=== PATIENT | female | born 1990 | race Caucasian/White ===

== ENCOUNTER → 2016-06-01 | Outpatient (CLI) | payer MEDICAID ==
[~2016-06-01] MED LIST: AMOXICILLIN 50500 MG PO; CEPHALEXIN500 M1 PO; CIPRO 500MG TA500 MG PO; FIORICET 325 MG1 TA1 PO; NIGHT-TIME COL300 ML; NORCO 325 MG-51 TAB PO; NORCO 325 MG-7.1 TAB PO; PERCOCET 325 MG1 TA2 PO; PHENERGAN 25 TA25 MG PO; PREDNISONE20 MG PO; PRENATAL1 TA1 PO; PRILOSEC 20MG20 MG PO; PROTONIX20 MG PO; PROZAC 20MG20 MG PO; ROBITUSSIN DM 110 ML PO; SINGULAIR 110 MG/TAB PO; SUDAFED 12HR120 MG PO; TRAMADOL; VALIUM 5MG T5 MG/TAB PO; VENTOLIN0.09 MG IH; VIIBRYD10 MG PO; VISTARIL 2525 MG/CAP PO; ZITHROMAX 250M250 MG PO; ZITHROMAX Z PA250 MG PO; ZOFRAN 4MG T4 MG/TAB PO; ZOFRAN ODT4 MG PO
== END ==
LOC: COL.PUL 12:54
DX: R05 Cough (principal)

== ENCOUNTER 2016-06-20 09:15 | Emergency (ER) | payer MEDICAID ==
[~2016-06-20] VITALS: Ht 165.1 cm; Wt 101.8 kg
[~2016-06-20 09:15] MED LIST changes: -PRILOSEC 20MG20 MG PO; -PROTONIX20 MG PO; -PROZAC 20MG20 MG PO; -SINGULAIR 110 MG/TAB PO
[2016-06-20 09:28] VITALS: TEMP 97.9
[2016-06-20 10:27] LABS: BASO % 0.2 % (0.0-2.0); EOS # 0.1 (0.0-0.7); EOS % 0.9 % (0-4.0); GRAN # 7.9 (1.4-6.5); GRAN % 80.8 % (42.2-75.2); HEMATOCRIT 37.3 % (37.0-47.0); HEMOGLOBIN 12.5 g/dl (12.5-16.0); LYMPH # 1.3 (1.2-3.4); LYMPH % 13.4 % (20.0-51.0); MEAN CELL VOLUME 95 fl (80.0-100.0); MEAN CORPUSCULAR HEMOGLOBIN 32 pg (27.0-31.0); MEAN CORPUSCULAR HGB CONC 34 g/dl (33.0-37.0); MEAN PLATELET VOLUME 12.1 fl (7.4-10.4); MONO # 0.4 (0.1-0.6); MONO % 4.1 % (1.7-9.3); PLATELET COUNT 177 K/mm3 (130-400); RED BLOOD COUNT 3.94 M/mm3 (4.10-5.30); REDCELL DISTRIBUTION WIDTH-CV 13.1 % (11.5-14.5); WHITE BLOOD COUNT 9.8 K/mm3 (4.8-10.8)
[2016-06-20 10:36] LABS: PH 6 (5-8); URINE APPEARANCE Hazy; URINE BACTERIA Rare /hpf; URINE BILIRUBIN Negative (NEGATIVE); URINE BLOOD Negative (NEGATIVE); URINE COLOR Yellow; URINE GLUCOSE Negative (NEGATIVE); URINE KETONE Negative (NEGATIVE); URINE RBC 0-2 /hpf; URINE UROBILINOGEN Negative (NEGATIVE)
[2016-06-20 10:42] LABS: ADJUSTED CALCIUM 9.3 mg/dL (8.4-10.2); ALBUMIN 3.7 gm/dL (3.5-5.0); BILIRUBIN,TOTAL 1.1 mg/dL (0.0-1.0); CALCIUM 9.1 mg/dL (8.4-10.2); CREATININE, serum 0.47 mg/dL (0.52-1.25); POTASSIUM 4.2 mmol/L (3.4-5.0); TOTAL PROTEIN 6.9 gm/dL (6.4-8.2)
[2016-06-20 14:04] VITALS: BP 118/77; PULSE 87
== END 2016-06-20 14:06 | disposition home or self-care (01) ==
LOC: COL.ER 09:15
PROVIDERS: Physician Assistant
DX: O21.9 Vomiting of pregnancy, unspecified (principal); Z3A.15 15 weeks gestation of pregnancy; O43.892 Other placental disorders, second trimester; O99.89 Other specified diseases and conditions complicating pregnancy, childbirth and the puerperium; R82.90 Unspecified abnormal findings in urine
CPT/HCPCS: J2550; J7030

== ENCOUNTER 2016-07-06 19:00 | Outpatient (CLI) | payer MEDICAID ==
[~2016-07-06] VITALS: Ht 165.1 cm; Wt 100.0 kg
[2016-07-06 18:45] VITALS: BP 135/74; PULSE 70; TEMP 97.9
[2016-07-06] MEDS ORDERED: PROZAC 20MG20 MG PO (19:13)
[2016-07-06] MEDS ORDERED: SINGULAIR 110 MG/TAB PO (19:13)
[2016-07-06] MEDS ORDERED: PRILOSEC 20MG20 MG PO (19:14)
[2016-07-06] MEDS ORDERED: ZOFRAN 4MG T4 MG/TAB PO (19:15)
[2016-07-06 20:45] VITALS: BP 135/74; PULSE 70; TEMP 97.9
== END 2016-07-06 19:30 | disposition home or self-care (01) ==
LOC: LDRO 19:00
DX: O26.892 Other specified pregnancy related conditions, second trimester (principal); R10.2 Pelvic and perineal pain; Z3A.17 17 weeks gestation of pregnancy

== ENCOUNTER → 2016-08-30 | Outpatient (REF) ==
[~2016-08-30] MED LIST changes: +PRILOSEC 20MG20 MG PO; +PROTONIX20 MG PO; +PROZAC 20MG20 MG PO; +SINGULAIR 110 MG/TAB PO
== END ==
LOC: ZLAB.WCH 18:06
DX: Z01.89 Encounter for other specified special examinations (principal)

== ENCOUNTER 2016-09-25 12:54 | Outpatient (CLI) | payer MEDICAID ==
[~2016-09-25] VITALS: Ht 165.1 cm; Wt 109.5 kg
[~2016-09-25 12:54] MED LIST changes: -PROTONIX20 MG PO
[2016-09-25 13:05] VITALS: BP 136/80; PULSE 84; TEMP 98.6
[2016-09-25] MEDS ORDERED: PROZAC 20MG20 MG PO (13:16)
[2016-09-25 13:20] VITALS: BP 118/73; PULSE 87
[2016-09-25 13:26] LABS: PH 7 (5-8); URINE APPEARANCE Hazy; URINE BACTERIA Occasional /hpf; URINE BILIRUBIN Negative (NEGATIVE); URINE BLOOD Negative (NEGATIVE); URINE COLOR Yellow; URINE GLUCOSE Negative (NEGATIVE); URINE KETONE Negative (NEGATIVE); URINE RBC 0-2 /hpf; URINE UROBILINOGEN Negative (NEGATIVE)
[2016-09-25 13:55] VITALS: BP 112/64; PULSE 82
== END 2016-09-25 14:10 | disposition home or self-care (01) ==
LOC: LDRO 12:54
PROVIDERS: Student in an Organized Health Care Education/Training Program
DX: O62.9 Abnormality of forces of labor, unspecified (principal); Z3A.29 29 weeks gestation of pregnancy

== ENCOUNTER 2016-11-30 06:38 | Inpatient (IN) | payer MEDICAID ==
[2016-11-30] VITALS (49 sets, daily range): BP systolic 84–143; BP diastolic 50–88; PULSE 67–108; TEMP 97.5–98.3
[~2016-11-30] VITALS: Ht 165.1 cm; Wt 115.5 kg
[2016-11-30] MEDS ORDERED: PROTONIX20 MG PO (07:29)
[2016-11-30 08:06] LABS: BASO % 0.1 % (0.0-2.0); EOS # 0.1 (0.0-0.7); EOS % 1.3 % (0-4.0); GRAN % 70.9 % (42.2-75.2); LYMPH # 1.7 (1.2-3.4); LYMPH % 19.6 % (20.0-51.0); MEAN CELL VOLUME 99 fl (80.0-100.0); MEAN CORPUSCULAR HGB CONC 34 g/dl (33.0-37.0); MEAN PLATELET VOLUME 11.8 fl (7.4-10.4); MONO # 0.6 (0.1-0.6); MONO % 7.6 % (1.7-9.3); PLATELET COUNT 161 K/mm3 (130-400); RED BLOOD COUNT 3.33 M/mm3 (4.10-5.30); REDCELL DISTRIBUTION WIDTH-CV 14.6 % (11.5-14.5); WHITE BLOOD COUNT 8.4 K/mm3 (4.8-10.8)
[2016-11-30 08:07] LABS: HEMATOCRIT 32.9 % (37.0-47.0); HEMOGLOBIN 11.1 g/dl (12.5-16.0); MEAN CORPUSCULAR HEMOGLOBIN 33 pg (27.0-31.0)
[2016-12-01 02:05] VITALS: BP 101/58; PULSE 69; TEMP 98.3
[2016-12-01 05:25] VITALS: BP 125/74; PULSE 96; TEMP 97.8
[2016-12-01 07:00] VITALS: BP 112/75; PULSE 89; TEMP 98.4
[2016-12-01 08:21] LABS: BASO % 0.2 % (0.0-2.0); EOS # 0.1 (0.0-0.7); EOS % 0.8 % (0-4.0); GRAN # 9.3 (1.4-6.5); GRAN % 74.9 % (42.2-75.2); LYMPH # 2.1 (1.2-3.4); MEAN CELL VOLUME 99 fl (80.0-100.0); MEAN CORPUSCULAR HGB CONC 34 g/dl (33.0-37.0); MEAN PLATELET VOLUME 11.5 fl (7.4-10.4); MONO # 0.8 (0.1-0.6); MONO % 6.5 % (1.7-9.3); PLATELET COUNT 139 K/mm3 (130-400); RED BLOOD COUNT 3.03 M/mm3 (4.10-5.30); REDCELL DISTRIBUTION WIDTH-CV 14.6 % (11.5-14.5); WHITE BLOOD COUNT 12.4 K/mm3 (4.8-10.8)
[2016-12-01 08:23] LABS: HEMOGLOBIN 10.1 g/dl (12.5-16.0); MEAN CORPUSCULAR HEMOGLOBIN 33 pg (27.0-31.0)
[2016-12-01] MEDS ORDERED: PERCOCET 325 MG1 TA2 PO (08:46)
[2016-12-01 12:00] VITALS: BP 107/72; PULSE 70; TEMP 98.5
[2016-12-01 16:35] VITALS: BP 126/87; PULSE 90; TEMP 98.5
[2016-12-01 21:10] VITALS: BP 113/75; PULSE 82; TEMP 98.3
[2016-12-02 08:59] VITALS: BP 101/68; PULSE 82; TEMP 98.5
== END 2016-12-02 11:30 | disposition home or self-care (01) | DRG 775 ==
LOC: LDR 06:38 → OB 21:45 → EDSTATUS 12-04 06:36 → LDRO 12-04 10:56
PROVIDERS: Student in an Organized Health Care Education/Training Program
PROC: 10E0XZZ Delivery of Products of Conception, External Approach (ICD-10-PCS; principal; 2016-11-30)
PROC: 0HQ9XZZ Repair Perineum Skin, External Approach (ICD-10-PCS; 2016-11-30)
PROC: 3E033VJ Introduction of Other Hormone into Peripheral Vein, Percutaneous Approach (ICD-10-PCS; 2016-11-30)
DX: O70.0 First degree perineal laceration during delivery (principal); Z3A.39 39 weeks gestation of pregnancy; Z37.0 Single live birth
CPT/HCPCS: J2405; J2590; J2795; J7120

== ENCOUNTER → 2017-01-29 | Outpatient (REF) ==
[~2017-01-29] MED LIST changes: +PROTONIX20 MG PO
== END ==
LOC: ZLAB.WCH 18:05
DX: Z01.89 Encounter for other specified special examinations (principal)

== ENCOUNTER → 2017-01-30 | Outpatient (REF) | LOC: ZLAB.WCH 08:34 | DX: Z01.89 Encounter for other specified special examinations (principal) ==

== ENCOUNTER → 2017-04-30 | Outpatient (REF) ==
[2017-04-30 09:20] LABS: THYROXINE (T4)-TOTAL 5.5 ug/dL (5.5-11.0)
[2017-04-30 09:33] LABS: THYROID STIMULATING HORMONE 1.64 uIU/mL (0.465-4.680)
== END ==
LOC: ZLAB.WCH 08:41
PROVIDERS: Internal Medicine
DX: Z01.89 Encounter for other specified special examinations (principal)

== ENCOUNTER → 2017-08-08 | Outpatient (CLI) | payer MEDICAID | LOC: COL.VAS 12:57 | DX: M79.605 Pain in left leg (principal); R60.0 Localized edema ==